=== PATIENT | male | born 1990 | race Two or more races ===

== ENCOUNTER 2020-05-15 00:04 | Emergency (ER) | payer OTHER, MEDICAID ==
[~2020-05-15] VITALS: Ht 170.2 cm; Wt 72.6 kg
[2020-05-15 00:15] VITALS: BP 121/70
--- NOTE | 2020-05-15 00:16 | Emergency Room Report ---
History of Present Illness General Chief Complaint: Alcohol Intoxication Source: EMS Present Illness HPI Patient brought in by EMS. He was unresponsive according to bystanders laying on the ground. When paramedics arrived he was responsive but unable to ambulate on his own. Apparently he was 1 block away from his house however unable to navigate their. They brought him to the emergency department. Allegedly he has been drinking alcohol. They state that he has not used other drugs recently. There is no sign of trauma. Allergies: Coded Allergies: No Known Allergies (Unverified , 05/15/20) COVID-19 Screening Contact w/high risk pt: No Experienced COVID-19 symptoms?: No COVID-19 Testing performed CLINICAL FELLOW: No Patient History Limited by: medical condition Past Medical History: see triage record Social History: Reports: alcohol use Social History Narrative Patient lives with mother and is working Reviewed Nursing Documentation: PMH: Agreed; PSxH: Agreed Nursing Documentation-[facility] Past Medical History: No Stated History Review of Systems All Other Systems: limited Physical Exam Vital Signs Date Time Temp Pulse Resp B/P (MAP) Pulse Ox O2 Delivery O2 Flow Rate FiO2 05/15/20 00:05 98.8 110 18 128/94 (105) 99 Room Air Sp02 EP Interpretation: reviewed, normal General Appearance: well appearing, no apparent distress, GCS 15 Head: normocephalic, atraumatic Eyes: bilateral eye PERRL, bilateral eye EOMI, bilateral eye Scleral Injection ENT: moist mucus membranes Neck: supple Respiratory: lungs clear, normal breath sounds Cardiovascular #1: regular rate, rhythm Cardiovascular #2: 2+ radial (R) Gastrointestinal: normal inspection, non tender, no mass, non-distended, abnormal bowel sounds - Decreased Musculoskeletal: back normal, other - Spontaneously moves all extremities Neurologic: DTRs symmetric, sensory intact, responsive - Voice but lethargic not speaking, other - Gag present Psychiatric: other Skin: no rash, warm/dry Medical Decision Making Diagnostic Impression: Primary Impression: Acute alcoholic intoxication Qualified Codes: F10.929 - Alcohol use, unspecified with intoxication, unspecified ER Course Patient presents with altered level of consciousness and unsteadiness on his feet with alleged alcohol ingestion. Differential includes alcohol ingestion, electrolyte imbalance other type toxic ingestions or drugs amongst others. Patient evaluated with with labs. Lungs are clear and oximetry is good and therefore chest x-rays not indicated at this time. Patient has a nonfocal neurologic exam although he is ataxic and needs repeated evaluation as opposed to CT of the head. Patient is placed on a [employer] water [employer] sewer systems. IV hydration is ordered. Labs remarkable for elevated blood alcohol level. Otherwise normal. Patient observed for several hours. In the morning patient was fully alert and awake. He denies suicidal or homicidal ideation. He does not state why he drinks so much. He does state that he has had a prior DUI. He is familiar with [employer] but does not have a sponsor. He denies seizure or peptic ulcer disease. The patient is eating voraciously. Discussed with patient the seriousness of his presentation. Uncertain how seriously he takes this. Discussed the need for follow-up with a primary physician (he does not have one). Also discussed the importance of following up with [facility]. He has understands this. Patient stable for outpatient observation and treatment. Laboratory Tests Test 05/15/20 00:13 05/15/20 04:47 White Blood Count 7.2 K/UL (4.8-10.8) Red Blood Count 5.62 M/UL (4.70-6.10) Hemoglobin 16.4 G/DL (14.2-18.0) Hematocrit 50.3 % (42.0-52.0) Mean Corpuscular Volume 89 FL (80-99) Mean Corpuscular Hemoglobin 29.2 PG (27.0-31.0) Mean Corpuscular Hemoglobin Concent 32.7 G/DL (32.0-36.0) Red Cell Distribution Width 12.0 % (11.6-14.8) Platelet Count 331 K/UL (150-450) Mean Platelet Volume 6.9 FL (6.5-10.1) Neutrophils (%) (Auto) 56.0 % (45.0-75.0) Lymphocytes (%) (Auto) 32.3 % (20.0-45.0) Monocytes (%) (Auto) 7.2 % (1.0-10.0) Eosinophils (%) (Auto) 3.6 % (0.0-3.0) H Basophils (%) (Auto) 0.9 % (0.0-2.0) Sodium Level 145 MMOL/L (136-145) Potassium Level 3.5 MMOL/L (3.5-5.1) Chloride Level 108 MMOL/L (98-107) H Carbon Dioxide Level 24 MMOL/L (21-32) Anion Gap 13 mmol/L (5-15) Blood Urea Nitrogen 11 mg/dL (7-18) Creatinine 1.0 MG/DL (0.55-1.30) Estimated Glomerular Filtration Rate > 60 mL/min (>60) Glucose Level 123 MG/DL (74-106) H Calcium Level 8.7 MG/DL (8.5-10.1) Total Bilirubin 0.2 MG/DL (0.2-1.0) Aspartate Amino Transferase (AST) 34 U/L (15-37) Alanine Aminotransferase (ALT) 66 U/L (12-78) Alkaline Phosphatase 102 U/L (46-116) Total Protein 8.1 G/DL (6.4-8.2) Albumin 4.6 G/DL (3.4-5.0) Globulin 3.5 g/dL Albumin/Globulin Ratio 1.3 (1.0-2.7) Salicylates Level 0.7 ug/mL (2.8-20) L Acetaminophen Level < 2 MCG/ML (10-30) L Serum Alcohol 364 mg/dL Urine Opiates Screen Negative (NEGATIVE) Urine Barbiturates Screen Negative (NEGATIVE) Phencyclidine (PCP) Screen Negative (NEGATIVE) Urine Amphetamines Screen Negative (NEGATIVE) Urine Benzodiazepines Screen Negative (NEGATIVE) Urine Cocaine Screen Negative (NEGATIVE) Urine Marijuana (THC) Screen Negative (NEGATIVE) Rhythm Strip Diag. Results EP Interpretation: yes Rhythm: NSR, no PVC's, no ectopy Last Vital Signs Date Time Temp Pulse Resp B/P (MAP) Pulse Ox O2 Delivery O2 Flow Rate FiO2 05/15/20 05:07 98.2 91 16 128/88 100 Room Air Status: improved Disposition: HOME, SELF-CARE Condition: Improved Jaylen Maldonado MD May 15, 2020 00:16
[2020-05-15 00:37] LABS: BASOPHILS % (AUTO) 0.9 % (0.0-2.0); EOSINOPHILS % (AUTO) 3.6 % (0.0-3.0); HEMATOCRIT 50.3 % (42.0-52.0); HEMOGLOBIN 16.4 G/DL (14.2-18.0); LYMPHOCYTES % (AUTO) 32.3 % (20.0-45.0); MEAN CORPUSCULAR VOLUME 89 FL (80-99); MONOCYTES % (AUTO) 7.2 % (1.0-10.0); PLATELET COUNT 331 K/UL (150-450); RED BLOOD COUNT 5.62 M/UL (4.70-6.10); WHITE BLOOD COUNT 7.2 K/UL (4.8-10.8)
[2020-05-15 00:44] LABS: ANION GAP 13 mmol/L (5-15); BLOOD UREA NITROGEN 11 mg/dL (7-18); CALCIUM 8.7 MG/DL (8.5-10.1); CARBON DIOXIDE 24 MMOL/L (21-32); CHLORIDE 108 MMOL/L (98-107); POTASSIUM 3.5 MMOL/L (3.5-5.1); SODIUM 145 MMOL/L (136-145)
[2020-05-15 00:50] LABS: ALANINE AMINOTRANSFERASE 66 U/L (12-78); ALBUMIN 4.6 G/DL (3.4-5.0); ALBUMIN/GLOBULIN RATIO 1.3 (1.0-2.7); ALKALINE PHOSPHATASE 102 U/L (46-116); ASPARTATE AMINO TRANSFERASE 34 U/L (15-37); BILIRUBIN,TOTAL 0.2 MG/DL (0.2-1.0)
[2020-05-15 01:00] VITALS: BP 97/45
[2020-05-15 02:05] VITALS: BP 105/50
[2020-05-15 03:09] VITALS: BP 101/46
[2020-05-15 04:55] VITALS: BP 128/88
[2020-05-15 05:07] VITALS: BP 128/88
== END 2020-05-15 05:07 | disposition home or self-care (01) ==
LOC: EDBD 00:04 → EDUNIT# 00:04 → EMR 00:31
DX: F10.929 Alcohol use, unspecified with intoxication, unspecified (principal); Y90.8 Blood alcohol level of 240 mg/100 ml or more
CPT/HCPCS: 36415; 80053; 80307; 85025; 96360; 96361; 99284; G0480; J7030